=== PATIENT | female | born 1940 | race Hispanic/Latino ===

== ENCOUNTER 2022-12-03 12:41 | Emergency (ER) | payer OTHER ==
[~2022-12-03] VITALS: Ht 157.5 cm; Wt 63.5 kg
[2022-12-03 13:18] LABS: HEMATOCRIT 40.4 % (36-48); MEAN CORPUSCULAR HGB CONC 33.4 g/dL (32.0-36.0); MEAN CORPUSCULAR VOLUME 92.7 fL (79-99); PLATELET COUNT (AUTO) 223 K/uL (130-400); RED BLOOD CELL COUNT(AUTO) 4.36 MIL/uL (4.00-5.50); RED CELL DISTRIBUTION WIDTH 12.5 % (11.0-15.5); WHITE BLOOD COUNT (AUTO) 7.9 K/uL (4.8-10.8)
[2022-12-03 13:27] LABS: APPEARANCE,URINE CLEAR (CLEAR); BILIRUBIN,URINE NEGATIVE (NEGATIVE); COLOR,URINE YELLOW (YELLOW); GLUCOSE, URINE (UA) NEGATIVE (NEGATIVE); KETONES,URINE NEGATIVE (NEGATIVE); LEUKOCYTE ESTERASE ,URINE NEGATIVE Leu/uL (NEGATIVE); NITRATE,URINE NEGATIVE (NEGATIVE); OCCULT BLOOD,URINE LARGE (NEGATIVE); PH,URINE 5.5 (5.0-8.0); PROTEIN,URINE 10 mg/dL (NEGATIVE); UROBILINOGEN,URINE 0.2 mg/dL (0.2-1.0)
[2022-12-03 13:42] LABS: ALBUMIN 3.7 g/dL (3.5-5.0); CREATININE 0.9 mg/dL (0.5-1.5); TOTAL PROTEIN, SERUM 7.8 g/dL (6.0-8.3)
[2022-12-03] MEDS ORDERED: ACETAMINOPHEN 325 MG TAB PO ONE (14:00)
[2022-12-03 14:12] LABS: MUCUS,URINE RARE LPF (None Seen); SQUAMOUS EPITHELIAL CELL,UR RARE /HPF (0-2)
[2022-12-03 14:28] LABS: BASOPHILS % (AUTO) 0.4 % (0.0-5.0); LYMPHOCYTES % (AUTO) 16.6 % (21.0-51.0); NEUTROPHILS % (AUTO) 72.7 % (40.0-77.0)
[2022-12-03 14:29] LABS: CREATINE KINASE, TOTAL 66 U/L (21-232); LIPASE 74 U/L (114-286)
[2022-12-03 15:18] VITALS: BP 102/65
[2022-12-03] MEDS ORDERED: PENICILLIN G BENZATHINE LA 600,000 UNITS/ML SYG IM ONE (15:30)
[2022-12-05] MEDS ORDERED: SIMV-43 PO (07:17)
== END 2022-12-03 16:01 | disposition home or self-care (01) ==
LOC: EDH 12:41
DX: M79.10 Myalgia, unspecified site (principal); R31.29 Other microscopic hematuria; Z60.2 Problems related to living alone; Z20.822 Contact with and (suspected) exposure to COVID-19
CPT/HCPCS: 99283; 87635; 82550; 80053; 83690; 85025; 87804 ×2; 81001; 36415; J0561; C9803